=== PATIENT | female | born 1980 | race Caucasian/White ===

== ENCOUNTER 2016-08-04 21:07 | Inpatient (IN) | payer OTHER ==
[~2016-08-04] VITALS: Wt 79.8 kg
[~2016-08-04 21:07] MED LIST: Bupivacaine-MPF 0.25% 30 mL Inj ONE
[2016-08-04] MEDS ORDERED: Lactated Ringer's 1,000 ML IV PRN (22:01)
[2016-08-04] MEDS ORDERED: Oxytocin 30 Units/500 mL LR 30 UNITS in IV Premix 1 EACH IV PRN (22:05)
[2016-08-04] MEDS ORDERED: Methylergonovine 0.2 mg/mL Inj IM PRN (22:05)
[2016-08-04] MEDS ORDERED: Ondansetron 2 mg/mL 2 mL Inj IVPUSH PRN (22:05)
[2016-08-04] MEDS ORDERED: Oxytocin 10 Unit/mL Inj IM PRN (22:05)
[2016-08-04] MEDS ORDERED: Sodium Chloride LOK Flush 10 mL Syringe IVFLUSH PRN (22:05)
[2016-08-04] MEDS ORDERED: fentaNYL-PF 50 mCg/mL 2 mL Inj IVPUSH PRN (22:05)
[2016-08-04] MEDS ORDERED: Carboprost 250 mCg/mL Inj IM PRN (22:05)
[2016-08-04] MEDS ORDERED: Hemorrhage Kit, Post Partum XX ONE (22:05)
[2016-08-04 22:18] LABS: Mean Corpuscular Hemoglobin 31.4 pg (27.0-35.0); Mean Corpuscular Volume 92.5 fL (81-100)
[2016-08-04] MEDS ORDERED: fentaNYL 2 mCg/mL-Bupivicaine 0.125% 100 mL Premix EPIDURAL ONE (22:45)
--- NOTE | 2016-08-04 23:11 | PCM.HPOB ---
Subjective Date of Service: Aug 04, 2016 Referring Provider: Admitting Physician: Fortunato Grant DO Primary Care Physician: Fortunato Grant DO Attending Physician: Fortunato Grant DO Chief Complaint lower abdominal pain History of Present History of Present Illness 35 yo [id number] WF at 37w1d by certain LMP and 1st trimester US presents with lower abdominal pain/contractions every 2-3 minutes since around 6pm tonight. Was seen earlier today in the clinic and had membranes swept. She denies leaking fluids. Denies bleeding, headaches or vision changes. GBS negative. Baby boy Reg Mullins. OB history: 2 previous term NSVDs at ~38wks, no complications. Pt does not remember the length of previous labors. H/o hyperemesis throughout requiring zofran. related GERD PMH: 1. Anxiety 2. Migraines PSH: Negative Social: [place] [address] [place] with her and 2 older children. 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 10 point ROS conducted and neg unless otherwise noted above. Past Medical History Hx Tobacco Use: No Smoking Status: Never Smoker Hx Alcohol Use: No Hx Substance Use: No Past Family History Living Arrangement: with Family Genetic Screening/Counseling Genetic Screening/Counseling: Negative Baby father-had child w defect: No Medications Home medications pnv lexapro 20mg daily omeprazole 20mg daily zofran 4mg q8hrs prn Allergy Coded Allergies: penicillin G (Verified Allergy, Intermediate, rash, 08/04/16) Exam Vital Signs 36.7 98.1 84 18 103/69 Exam Baseline FHT at 125, pos accells, no decels, mod BTBV, category one. Objective 3cm, 80%, -2, mid-position ctx q2-4 min Constitutional: Well-developed, Well-nourished, Normal habitus HEENT: Atraumatic, PERRLA, EOMI, Scleral Anicteric Lungs: Clear to Auscultation, Clear to Percussion, Normal Air Movement Heart: Exam Unremarkable, Regular Rate/Rhythm, Normal S1, Normal S2 Fundus 36cm Abdomen: Gravid, Normal bowel sounds, Soft, No tenderness Extremities: Pulses Palpable x4, Warm, No Edema Neurological/Psychiatric: Alert, Oriented X3, Cooperative, Moderate Distress Neuro: Grossly Neurologically Intact, Reflexes 2+, Normal DTRs Gynecologic: Normal: Adnexa/Parametria, Anus/Perineum, Bladder, Breasts, Cervix , External Genitalia, Rectal, Urethral Meatus, Uterus, Vagina/Pelvic Support Labs/Diagnostics Labs Laboratory Tests 72 Hours Test 08/04/16 22:00 White Blood Count 13.1th/mm3 (3.8-10.1) Red Blood Count 4.01mil/mm3 (3.90-5.20) Hemoglobin 12.6g/dL (12.0-15.6) Hematocrit 37.1% (35.0-46.0) Mean Corpuscular Volume 92.5fL (81-100) Mean Corpuscular Hemoglobin 31.4pg (27.0-35.0) Mean Corpuscular Hemoglobin Concent 34.0% (32.0-37.0) Red Cell Distribution Width 13.1% (12.3-15.4) Platelet Count 258bil/L (150-400) Maternal Blood Type: AB (pos) Hx Rho(D) Immune Globulin: No Antibody Screen: Neg Group B Strep Results: Negative Previous with GBS: Yes Rubella: Immune Lab History: Positive for: Hx Chicken Pox, Negative for: Hx Gonorrhea, Hx HIV, Hx Herpes, Hx Syphilis OB Intrapartum Assessment/Plan Assessment Assessment: 1. 35 yo [id number] at 37w1d by certain LMP and 1st trimester US here in active labor 2. GBS neg 3. Desires epidural 4. Reassuring FHT 5. Membranes intact Plan: 1. Expectant Management 2. Epidural after labs return 3. AROM after epidural Problems: (1) Qualifiers: Weeks of gestation: 37 weeks Qualified Code: Z3A.37 - 37 weeks gestation of Status: Resolved ICD Code: Z33.1 Pain Evaluation: Adequate Pain Control Time Spent: 30 min Fortunato Grant DO Aug 04, 2016 23:07
[2016-08-05] MEDS ORDERED: Lactated Ringer's 1,000 ML IV SCH (00:49)
[2016-08-05] MEDS ORDERED: Oxytocin 30 Units/500 mL LR 30 UNITS in IV Premix 1 EACH IV PRN (00:50)
[2016-08-05] MEDS ORDERED: Carboprost 250 mCg/mL Inj IM PRN (00:50)
[2016-08-05] MEDS ORDERED: Witch Hazel-Glycerin Pads TOPICAL PRN (00:50)
[2016-08-05] MEDS ORDERED: Methylergonovine 0.2 mg/mL Inj IM PRN (00:50)
[2016-08-05] MEDS ORDERED: Codeine-APAP 30-300 mg Tablet PO PRN (00:50)
[2016-08-05] MEDS ORDERED: Benzocaine (Dermoplast) 20% 60 Gm Spray TOPICAL PRN (00:50)
[2016-08-05] MEDS ORDERED: LANOlin HPA 7 Gm Ointment TOPICAL PRN (00:50)
[2016-08-05] MEDS ORDERED: Oxytocin 10 Unit/mL Inj IM PRN (00:50)
[2016-08-05] MEDS ORDERED: Hemorrhage Kit, Post Partum XX ONE (00:50)
[2016-08-05 08:51] LABS: Mean Corpuscular Hemoglobin 30.6 pg (27.0-35.0)
--- NOTE | 2016-08-05 11:52 | PCM.ANEP2 ---
Post Anesthesia Evaluation ASA/CMS Post Anesthesia VS in Patient's Normal Range?: Yes Resp Stable; Airway Patent?: Yes CV Function & Hydration Stable: Yes Mental Status Recovered?: Yes Pain control Satisfactory?: Yes N/V Control Satisfactory?: Yes Agusto Hoffman MD Aug 05, 2016 11:52
[2016-08-06] MEDS ORDERED: Influenza (Adult) Vaccine 0.5 mL Syringe IM ONE (13:35)
--- NOTE | 2016-08-06 13:43 | PCM.DIOB ---
Obstetrical Disch Instruction Date of Service: Aug 06, 2016 Dates of Hospitalization Date of Hospital Admission Aug 04, 2016 at 21:50 Providers Admitting Physician: Fortunato Grant DO Primary Care Physician: Fortunato Grant DO Attending Physician: Fortunato Grant DO Discharge Diagnosis Problems: (1) Status: Resolved ICD Code: Z33.1 Diet Discharge Diet: No restrictions Activity Discharge Activity-General: Pelvic Rest for 6 weeks, Try not to overdue, Be up and about, Balance rest and activity, Ice incision 3-5 time/day for 20min, Activity as pain allows, Activity as energy allows Follow Up Plan Follow-up Provider (F9): Fortunato Grant DO Follow-up appointment: Weeks (6) Call your provider for: Fever or Chills, Shortness of breath, Heavy vaginal bleeding, Heavy bleeding, Epigastric pain, Excessive constipation, Vaginal discomfort, Red painful breasts Fortunato Grant DO Aug 06, 2016 13:43
[2016-08-06] MEDS ORDERED: DOCU-41 PO (13:46)
[2016-08-06] MEDS ORDERED: IBUP-1827 PO (13:46)
[2016-08-06] MEDS ORDERED: PREN-121 PO (13:46)
[2016-08-06] MEDS ORDERED: ESCI10TA52 PO (13:46)
[2016-08-06 13:48] VITALS: BP 107/63; PULSE 71; RESP 18
--- NOTE | 2016-08-19 06:49 | PCM.OBVAG ---
Vaginal Delivery Date of Service Aug 05, 2016 Procedure Obstetical Procedure: Normal Spontaneous Vaginal Delivery (at 0013), Repair of Perineal Tear (1st degree) Manager Of Pharmacy/Senior Net Engineer Provider and Senior Net Engineer: Wen Grant DO Indication for Procedure Induction: Active labor, AROM (clear fluids), Progressed normally through labor Findings Obstetrical Findings: Newton (Male), Cord (3 Vessel), Weight (2573 grams), Weight (5 lbs 11 oz), Presentation (ADRIAN), 1 minute (7), 5 minutes (9), Placenta (Intact/Normal), Perineal Laceration (1st degree) Analgesia/Medications Obstetrical Anesthesia: Epidural Procedure Details Procedure Details First-degree perineal laceration was repaired with 3. 0 Vicryl without complication. Patient tolerated the procedure well. Epidural used for anesthesia Specimen none Blood Loss & Administration Estimated Blood Loss: 250 Blood Admin during procedure: No Post Procedure Plan Post delivery Condition: Mom stable, Baby stable to Fortunato Camargo DO Aug 05, 2016 01:03
--- NOTE | 2016-08-19 06:54 | PCM.DC.OB ---
Obstetrical Discharge Summary Date of Service Aug 06, 2016 Date of hospital admission Aug 04, 2016 at 21:50 Date of Discharge: Aug 06, 2016 Providers Admitting Physician: Fortunato Bergman DO Primary Care Physician: Fortunato Bergman DO Attending Physician: Fortunato Bergman DO Problems: (1) Qualifiers: Weeks of gestation: 37 weeks Qualified Code: Z3A.37 - 37 weeks gestation of Status: Resolved ICD Code: Z33.1 Invasive procedures None Brief History and Physical: 35 yo [id number] WF at 37w1d by certain LMP and 1st trimester US presents with lower abdominal pain/contractions every 2-3 minutes since around 6pm tonight. Was seen earlier today in the clinic and had membranes swept. She denies leaking fluids. Denies bleeding, headaches or vision changes. GBS negative. Baby boy Reg Mullins. OB history: 2 previous term NSVDs at ~38wks, no complications. Patient does not remember the length of previous labors. Ongoing related hyperemesis requiring Zofran. -related GERD PMH: 1. Anxiety 2. Migraines PSH: None Social: [place] on [place] farm with her and 2 older children. 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 10 point ROS conducted and neg unless otherwise noted above. Hospital Course: Healthy term baby boy was performed on 08/05 via with Apgars 7 and 9. Small first-degree laceration repaired with 3. 0 Vicryl using epidural for anesthesia. course has been unremarkable and pain is controlled with ibuprofen alone. Patient has been up ambulating and voiding without difficulty. Passing gas but has not had a bowel movement. Breast-feeding without difficulty. Plans to discuss control options at follow-up. Discharge physical exam: Gen. appearance: No acute distress. Alert and oriented. Well-nourished well- developed. HEENT: Pupils equally round and reactive to light. Mucous membranes moist. Neck: Supple without lymphadenopathy no thyromegaly or nodules appreciated. Heart: regular rate and rhythm without murmur rub or gallop Lungs: Clear to auscultation bilaterally. Abdomen: Uterine fundus at the level of umbilicus, firm, nontender, nondistended , positive bowel sounds, no hepatosplenomegaly appreciated, no masses Extremities: Without edema, 2 out of 4 distal pulses. Skin: without rash Neuro: No gross deficits of cranial nerves or bilateral upper/lower extremities appreciated. Docusate Sodium (Colace) 100 Mg Capsule 100 MG PO BID Prescribed by: FORTUNATO BERGMAN DO Escitalopram Oxalate (Escitalopram Oxalate) 10 Mg Tablet 20 MG PO DAILY Prescribed by: FORTUNATO BERGMAN DO Ibuprofen (Ibuprofen) 600 Mg Tablet 600 MG PO Q6H PRN PRN For Mild Pain Prescribed by: FORTUNATO BERGMAN DO Vit #108/Iron/FA ( One Tablet) 1 Each Tablet 1 EACH PO DAILY Prescribed by: FORTUNATO BERGMAN DO Disposition Home. Follow-up plan in 4-6 weeks Discharge Diet: No restrictions Discharge Activity-General: Pelvic Rest, Try not to overdue, Be up and about, Balance rest and activity, Activity as pain allows, Activity as energy allows Time spent 30 minutes Fortunato Bergman DO Aug 06, 2016 12:55
== END 2016-08-06 14:35 | disposition home or self-care (01) | DRG 775 ==
LOC: FBCO 21:07 → FBC 21:50
PROVIDERS: ADMIT Emergency Medicine; ATTEND Emergency Medicine
PROC: 10907ZC Drainage of Amniotic Fluid, Therapeutic from Products of Conception, Via Natural or Artificial Opening (ICD-10-PCS; 2016-08-04)
PROC: 10E0XZZ Delivery of Products of Conception, External Approach (ICD-10-PCS; principal; 2016-08-05)
DX: O80 Encounter for full-term uncomplicated delivery (principal); Z3A.37 37 weeks gestation of pregnancy; Z37.0 Single live birth